=== PATIENT | female | born 1940 | race Caucasian/White ===

== ENCOUNTER → 2018-04-04 14:01 | Outpatient (CLI) | payer MEDICARE, SELFPAY ==
[2018-04-04 15:42] LABS: Absolute Lymphocyte Count 1.58 X10^3/ul (0.83-4.51); Absolute Neutrophil Count 3.3 X10^3/uL (2.0-7.7); Basophil# 0.02 X10^3/uL; Basophil% 0.4 % (0-1); Eosinophil# 0.09 X10^3/uL; Eosinophils% 1.6 % (0-5); Hematocrit 43.6 % (37-47); Hemoglobin 13.8 g/dl (12.0-15.0); Lymphocyte # 1.58 X10^3/ul (4.0); Lymphocyte % 28.5 % (19-41); Mean Corp Hgb Conc 31.7 g/gl (32-36); Mean Corpuscular Hgb 28.2 pg (27.0-32.0); Mean Platelet Vol. 10.6 fl (6.2-12.0); Monocyte# 0.52 X10^3/uL; Monocyte% 9.4 % (0-10); Neutrophil # 3.33 X10^3/uL (2.7-7.7); Neutrophil % 59.9 % (47-70); Platelet Count 283 K/mm3 (150-450); RBC Distribution Width CV 15.9 % (11.6-14.6); RBC Distribution Width SD 51.3 fl (35.1-43.9); White Blood Count 5.6 K/mm3 (4.4-11.0)
[2018-04-04 15:50] LABS: POSITIVE COUNT NO; POSITIVE DIFFERENTIAL NO; POSITIVE MORPHOLOGY NO
[2018-04-04 16:25] LABS: AST(SGOT) 38 U/L (15-37); Alanine Aminotransfer ALT/SGPT 74 U/L (13-56); Albumin, Serum 3.5 g/dL (3.2-5.0); Alkaline Phosphatase 58 U/L (45-117); Anion Gap 9 (5-15); BUN 12 mg/dL (7-18); BUN/Creat Ratio 19.9 RATIO (10-20); CPK Total, Creatine Kinase 428 U/L (26-192); CRP 2.98 mg/L (0.0-3.0); Chloride 106 mmol/L (98-107); EST Glomerular Filtration Rate 102 mL/min (>60); Est Glom Filt Rate - Afr Amer 124 mL/min (>60); Globulin 3.6 g/dL (2.2-4.2); Glucose 84 mg/dL (74-106); Potassium 3.8 mmol/L (3.5-5.1); Protein, Total 7.1 g/dL (6.4-8.2); Rheumatoid Factor < 10.0 IU/mL (<15); Sodium Level 140 mmol/L (136-145)
[2018-04-04 16:32] LABS: Erythrocyte Sedimentation Rate 21 mm/hr (0-30)
[2018-04-07 09:45] LABS: ANTINUCLEAR ANTIBODIES DIRECT Negative (Negative)
[2018-04-07 09:53] LABS: CCP IgG Antibodies 6 units (0-19); HEPATITIS B SURFACE AG Negative (Negative); Hep B Surface Antibodies Non Reactive (.); Hep C Antibodies <0.1 s/co ratio (0.0-0.9)
== END ==
PROVIDERS: Family Provider Family Medicine; PCP Family Medicine; Referring Provider Internal Medicine Rheumatology; Visit Provider Internal Medicine Rheumatology
DX: M06.4 Inflammatory polyarthropathy (principal); M47.897 Other spondylosis, lumbosacral region; M21.40 Flat foot [pes planus] (acquired), unspecified foot
CPT/HCPCS: 36415; 80053; 82550; 85025; 85652; 86038; 86140; 86200; 86431; 86706; 86803; 87340

== ENCOUNTER → 2019-01-27 | Outpatient (CLI) | payer MEDICARE, SELFPAY ==
[2019-01-27 17:58] LABS: Pathologist Comment May follow
[2019-01-27 20:36] LABS: AUTO B FLUID DILUENT BKGD CT WBC <0.1 RBC <0.01 (W<.1,R<.01); CRYSTALS, BODY FLUID See PATH REV
[2019-01-27 20:37] LABS: Color / Synovial Fluid Yellow (Pale Yellow); Source- Body Fluid SYNOVIAL
[2019-01-27 20:38] LABS: Appearance /Synovial Fluid Sl hazy (CLEAR)
[2019-01-27 20:39] LABS: Lymph 2 %; Neutrophil 10 % (0-25); Synovial Fld Mononuclear WBC # 0.235 10^3/ul; Synovial Fld Polynuclear WBC # 0.035 10^3/uL
[2019-01-27 20:40] LABS: Monocyte /Synovial Fluid 88 %
[2019-01-27 20:42] LABS: Body Fluid QC Type(s) BF1Q,BF2Q
[2019-01-27 20:45] LABS: RBC /Synovial Fluid 11 /mm3 (0)
[2019-01-31 10:06] LABS: Pathologist Review Reviewed
== END | disposition home or self-care (01) ==
PROVIDERS: Family Provider Family Medicine; PCP Family Medicine; Referring Provider Internal Medicine Rheumatology; Visit Provider Internal Medicine Rheumatology
DX: M06.4 Inflammatory polyarthropathy (principal); M25.562 Pain in left knee; M21.40 Flat foot [pes planus] (acquired), unspecified foot; M47.897 Other spondylosis, lumbosacral region; K21.9 Gastro-esophageal reflux disease without esophagitis; I10 Essential (primary) hypertension; I25.10 Atherosclerotic heart disease of native coronary artery without angina pectoris; G47.33 Obstructive sleep apnea (adult) (pediatric); Z79.899 Other long term (current) drug therapy
CPT/HCPCS: 87070; 87075; 87077; 87186; 87205; 89050; 89051; 89060

== ENCOUNTER 2023-07-28 14:00 | Outpatient (RCR) | payer MEDICARE, SELFPAY ==
--- NOTE | 2023-06-23 14:30 | HP.PTEVAL ---
Patient's Visit Information Visit Information Visit Information: SAL JESUS is a 83 year old F referred to Physical Therapy by Dr. Sina De MD with a diagnosis of spinal stenosis, radiculopathy. Date of Evaluation: 06/23/23 Physical Therapist: Micky Shelton, DPT, OCS, CSCS Visit Plan Frequency: 2x /Week Plan: 2x/week for 4-6 weeks... 1 monitor effects of home fis 10x 3+x/day and gastroc stretfch R 30 5x 2x/day on pain and cramping in R calf and use of walker 2. please teach mat based core strength and progress to I. NS core strength emphasis 3. rollout and stretch R calf 4. general exercise, monitor need for walker to take pressure off back and wean if able Mh as needed. Subjective Subjective: Has chronic back pain since February. It is leg cramps R and into R LB/buttock. Sees pain management and was good last week at this time but got worse last after carrying groceries in. Pain is up to 7/10 in r buttock and r leg cramps. It is intermittent. It can be worse sitting but not noticeable pain with ambulation but cramps worse with walking. 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 Dr. De said no surgery at her age and with her health. Sent for PT. Sees pain specialist but was not hurting so nothing done, offered shot in knee for OA. Sleep is not great for months unrelated to back and has tried several pills. Not employed. Lives with and a dog. Basic ADLs are I. One step with ramp to enter trailer and can do it. Spends day with home duties or at doctor's office. does laundry but mops the floor since back hurts. No regular exercises. spends time reading and sedentary. Had rods a long time ago in back and took rods out in 1993 as body rejected the rods. Had therapy earlier in the year. Has bladder problems for several years whcih she has seen urologist Pain R buttock: Pain Intensity (Out of 10): 5 Pain Intensity Range: 0 and 7 Comment: R leg Objective Objective: Walks slowly with a forward and R lurch showing weakness and instability r hip. I but slow. trasnfers bed and chair with UE I. Safe with balance today. Walks with wh walker much better, no lurch and less spinal instability. Upright and lasts longer without reaching for carter. LB AROM flexion is poor with max seficits in lower lumbar. SB mod deficits, ext not even to neutral and painful to try. Able to sit unsupported but weak. reflexes 2/3 patella and achilles B Sensation LE WNL to gross light touch B. Strength is 3+ in hips, 4- knees and 4- ankles without myotomal problems. max tightness B gastroc limting DF AROM. Hips rotations 40 er and 8 IR limited but good HSS flexibility and hip flexion. - slump and - SLR. core strength is 3/5 ext and flexion. Balance/Special Test Scores Oswestry Low Back Score: 29 Goals Goal 1:: Pt I appropriate home strength of core, stretch of legs to limit future problems Goal Time Frame: 4-6 Weeks Goal 2:: Cramping in R calf abolished and pain buttock 75% better at 2/10 at worst Goal Time Frame: 4-6 Weeks Goal 3:: Walk around house without AD without increased pain Goal Time Frame: 4-6 Weeks Goal 4:: back oswestry 8 or less Goal Time Frame: 4-6 Weeks Rehabilitation Potential Physical Therapy Diagnosis: limited ROM and pain in LB and cramping limiting funcitonal comfort Rehabilitation Potential: Questionable Anticipated Interventions Patient/Client Instruction: Educate patient on: Condition and Plan of Care For the Purpose of:: To decrease pain, To increase ROM, To improve nutrient delivery to tissue, To improve muscle performance and motor function and To increase tolerance to activity/condition/position Therapeutic Exercise to Include: Strength training, Flexibilty training, Passive ROM, Active ROM and Dynamic Lumbar Stabilization For the Purpose of:: To decrease pain, To decrease swelling/inflammation, To increase ROM, To improve nutrient delivery to tissue, To improve muscle performance and motor function and To increase tolerance to activity/condition/position Manual Therapy Techniques to Include: Mobilization, Passive ROM and Soft tissue mobilization For the Purpose of:: To decrease pain, To increase ROM and To improve nutrient delivery to tissue Thermo therapy (hot pack): Yes For the Purpose of:: To decrease pain Text: Thank you for the opportunity to evaluate your patient. For Medicare and Medicare HMO plans, please review the plan of care and approve it. It will need to be FAXED BACK to us at [phone] for Medicare purposes. For Medicare only, by signing this I certify the plan of care. Please let me know if there are questions or concerns regarding this plan of care. Physician Signature: Date:
--- NOTE | 2023-07-28 14:46 | HP.PTDCSUM ---
Discharge Summary D/C summary: It has been my pleasure to treat SAL JESUS referred by Dr. Sina De MD, with the diagnosis of spinal stenosis, radiculopathy for a total of 10 visit(s). Discharge Date: 07/28/23 Please see the following information for a summary of their discharge status. Subjective Subjective: Not losing sleep anymore(except after ball flexion). Pain is significantly better. 80% better. Has cramping at times but did not have it for a couple weeks. Activities: Life is normal. Sleep OK as far as back is concerned. To [facility] tomorrow. Might get knee shot. Walking with walker for long distance Pain R buttock: Pain Intensity (Out of 10): 0 Overall Improvement % Improvement: 80 Objective Objective/Function: Max limits in ext with some central pain, flexion is not painful, SB mod limited and no pain. Walking slowly but able safely without AD, less painful and able to go further with wh walker. Overall doing well and wishes to cotninue via HEP vs continued therapy. Goals Goal 1:: Pt I appropriate home strength of core, stretch of legs to limit future problems Goal Progress: Goal Met Goal 2:: Cramping in R calf abolished and pain buttock 75% better at 2/10 at worst Goal Progress: Goal Met Goal 3:: Walk around house without AD without increased pain Goal Progress: Goal Met Goal 4:: back oswestry 8 or less Goal Progress: Goal Met Plan Plan: d/c to HEP D/C Information Discharge Comments: Pt to continue via HEP and f/u with pain management. d/c sentence: If there are questions or concerns regarding this patient's physical therapy, please feel free to call me at [phone]. Thank you for the referral of this patient. Sincerely, Micky Shelton, DPT, OCS, CSCS Balance/Gait/Functional tests Balance/Special Test Scores Oswestry Low Back Score: 9 Improvement % Improvement: 80
== END 2023-07-28 19:00 | disposition home or self-care (01) ==
LOC: PT 14:00
PROVIDERS: PCP Family Medicine; Referring Provider Orthopaedic Surgery Orthopaedic Surgery of the Spine; Visit Provider Orthopaedic Surgery Orthopaedic Surgery of the Spine
DX: M48.061 Spinal stenosis, lumbar region without neurogenic claudication (principal); M54.16 Radiculopathy, lumbar region
CPT/HCPCS: 97110; 97162; 97530